=== PATIENT | male | born 1955 | race Caucasian/White ===

== ENCOUNTER 2020-10-11 02:51 | Emergency (ER) | payer BC ==
[2020-10-11] MEDS ORDERED: Ketorolac 60 MG/2 ML SDV IM ONE (02:56)
[2020-10-11] MEDS ORDERED: Sodium Chloride 0.9% 1,000 ML IV ONE (02:57)
[2020-10-11] MEDS ORDERED: Ondansetron 4 MG Tab.DIS PO ONE (03:15)
--- NOTE | 2020-10-11 03:51 | EDM.PDOC ---
ED HPI GENERAL MEDICAL PROBLEM - General Chief Complaint: Flank Pain Stated Complaint: flank pain Time Seen by Provider: 10/11/20 03:15 Source of Information: Reports: Patient History Limitations: Reports: No Limitations - History of Present Illness INITIAL COMMENTS - FREE TEXT/NARRATIVE: patient present to the ER with a c/o left flank pain - started around 6 hrs ago prior going to bed. Has been getting worse. In the left flank and radiating to the back. mild nausea no fever or chills no similar pain in the past reports it is sharp and around 9 out of 10. Onset: Sudden Duration: Hour(s): (6) Location: Reports: Abdomen Quality: Reports: Sharp, Stabbing Severity: Severe Improves with: Reports: None Worsens with: Reports: None Left Flank Pain Score (Numeric/FACES): 9 Past Medical History Cardiovascular History: Reports: High Cholesterol, Hypertension Endocrine/Metabolic History: Reports: Other (See Below) Other Endocrine/Metabolic History: pre diabetic Dermatologic History: Reports: Melanoma - Past Surgical History GI Surgical History: Reports: Hernia Repair/Other Musculoskeletal Surgical History: Reports: Other (See Below) Other Musculoskeletal Surgeries/Procedures:: achilles tendon repain Social & Family History - Recreational Drug Use Recreational Drug Use: No ED ROS GENERAL - Review of Systems Review Of Systems: See Below Constitutional: Reports: No Symptoms HEENT: Reports: No Symptoms Respiratory: Reports: No Symptoms Cardiovascular: Reports: No Symptoms GI/Abdominal: Reports: Anorexia Musculoskeletal: Reports: No Symptoms Skin: Reports: No Symptoms Neurological: Reports: No Symptoms Psychiatric: Reports: No Symptoms ED EXAM, GI/ABD - Physical Exam Exam: See Below Exam Limited By: No Limitations General Appearance: Alert, WD/WN, Mild Distress Eyes: Bilateral: EOMI Respiratory/Chest: No Respiratory Distress, Lungs Clear Cardiovascular: Normal Peripheral Pulses, Regular Rate, Rhythm GI/Abdominal Exam: Normal Bowel Sounds, Soft, Non-Tender Back Exam: CVA Tenderness (L) Neurological: Alert, Oriented, No Motor/Sensory Deficits Psychiatric: Normal Affect Course - Vital Signs Last Recorded V/S: Last Vital Signs Temp 36.1 C 10/11/20 03:20 Pulse 74 10/11/20 03:20 Resp 18 10/11/20 03:20 BP 154/101 H 10/11/20 03:20 Pulse Ox 97 10/11/20 03:20 - Orders/Labs/Meds Orders: Active Orders 24 hr Category Date Time Status Abdomen Pelvis wo Cont [CT] Stat Exams 10/11/20 03:47 Taken Labs: Laboratory Tests 10/11/20 10/11/20 10/11/20 Range/Units 03:10 03:10 03:20 WBC 9.7 D (4.0-11.0) K/uL RBC 4.49 L (4.50-6.50) M/uL Hgb 15.3 (13.0-18.0) g/dL Hct 42.4 (40.0-54.0) % MCV 94 (76-96) fL MCH 34.1 H (27.0-32.0) pg MCHC 36.1 H (31.0-35.0) g/dL RDW 11.8 (11.0-16.0) % Plt Count 202 (150-400) K/uL MPV 10.0 (6.0-10.0) fL Neut % (Auto) 74.4 H (45.0-70.0) % Lymph % (Auto) 15.1 L (20.0-40.0) % [place] % (Auto) 8.2 (3.0-10.0) % Eos % (Auto) 2.0 (1.0-5.0) % Baso % (Auto) 0.3 (0.0-0.5) % Neut # (Auto) 7.18 (2.00-7.50) K/uL Lymph # (Auto) 1.46 L (1.50-4.00) K/uL [place] # (Auto) 0.79 (0.20-0.80) K/uL Eos # (Auto) 0.19 (0.04-0.40) K/uL Baso # (Auto) 0.03 (0.02-0.10) K/uL Sodium 139 (136-145) mmol/L Potassium 4.1 (3.5-5.1) mmol/L Chloride 103 (98-107) mmol/L Carbon Dioxide 26.0 (21.0-32.0) mmol/L Anion Gap 14.1 (5.0-15.0) mmol/L BUN 21 D (8-26) mg/dL Creatinine 1.42 H D (0.70-1.30) mg/dL Est Cr Clr Drug Dosing TNP Estimated GFR (MDRD) 51 L (>60) MLS/MIN BUN/Creatinine Ratio 14.8 (6-25) Glucose 193 H (74-100) mg/dL Calcium 9.0 (8.5-10.1) mg/dL Urine Color Yellow Urine Appearance Clear (CLEAR) Urine pH 5.5 (5.0-8.0) Ur Specific [place] >= 1.030 (1.003-1.030) Urine Protein Negative (NEGATIVE) mg/dL Urine Glucose (UA) Negative (NEGATIVE) mg/dL Urine Ketones 15 H (NEGATIVE) mg/dL Urine Occult Blood Small H (NEGATIVE) Urine Nitrite Negative (NEGATIVE) Urine Bilirubin Negative (NEGATIVE) Urine Urobilinogen 0.2 (0.2-1.0) E.U./dL Ur Leukocyte Esterase Negative (NEGATIVE) Urine RBC 10-20 H /HPF Urine WBC Not Reportable Urine Bacteria Rare /HPF Meds: Medications Discontinued Medications Generic Name Dose Route Start Last Admin Trade Name Lui PRN Reason Stop Dose Admin Sodium Chloride 1,000 mls @ 999 mls/hr 10/11/20 02:57 10/11/20 03:14 Normal Saline IV 10/11/20 03:57 999 mls/hr .BOLUS ONE Administration Ketorolac Tromethamine 60 mg 10/11/20 02:56 10/11/20 03:01 Ketorolac 60 Mg/2 Ml Sdv IM 10/11/20 02:57 60 mg ONETIME ONE Administration Ketorolac Tromethamine Confirm 10/11/20 04:39 Ketorolac 10 Mg Tab Administered 10/11/20 04:40 Dose 100 mg .ROUTE .STK-MED ONE Ondansetron HCl 4 mg 10/11/20 03:15 10/11/20 03:16 Ondansetron 4 Mg Tab.Dis PO 10/11/20 03:16 4 mg ONETIME ONE Administration Tamsulosin HCl Confirm 10/11/20 04:39 Tamsulosin 0.4 Mg Cap.Er Administered 10/11/20 04:40 Dose 2.8 mg .ROUTE .STK-MED ONE - Re-Assessments/Exams Free Text/Narrative Re-Assessment/Exam: pain control with IM toradol IVF was started labs - showed mild elevation in Cr,, and ++ RBC in urine CT abd/pelv showed a 8mm left mid ureter with mild hydronephrosis patient reports pain significantly improved will d/cd home on Toradol, Zofran, Flomax and Cipro Departure - Departure Time of Disposition: 04:40 Disposition: Home, Self-Care 01 Clinical Impression: Ureteric colic, UTI, Urinary tract infectious disease, Flank pain - Discharge Information *PRESCRIPTION DRUG MONITORING PROGRAM REVIEWED*: Not Applicable *COPY OF PRESCRIPTION DRUG MONITORING REPORT IN PATIENT ELVIRA: Not Applicable Instructions: Renal Colic, [id number], Flank Pain, Adult, [id number] Referrals: PCP,Unknown [Primary Care Provider] - Forms: ED Department Discharge Additional Instructions: - increase fluids intake -take pain medications as prescribed - return to the ER if symptoms got worse or any concerns - follow up with your PCP in 3-7 days to recheck you kidney function Sepsis Event Note (ED) - Evaluation Sepsis Screening Result: No Definite Risk - Focused Exam Vital Signs: Vital Signs Temp Pulse Resp BP Pulse Ox 10/11/20 03:20 36.1 C 74 18 154/101 H 97 - Problem List & Annotations (1) Flank pain SNOMED Code(s): 409826719 Code(s): R10.9 - UNSPECIFIED ABDOMINAL PAIN Status: Acute Priority: Low Current Visit: Yes (2) UTI, Urinary tract infectious disease SNOMED Code(s): 49102836 Code(s): N39.0 - URINARY TRACT INFECTION, SITE NOT SPECIFIED Status: Acute Priority: Low Current Visit: Yes (3) Ureteric colic SNOMED Code(s): 03890392 Code(s): N23 - UNSPECIFIED RENAL COLIC Status: Acute Priority: Medium Current Visit: Yes (4) KRISTINA (acute kidney injury) SNOMED Code(s): 16720151, 07904110 Code(s): N17.9 - ACUTE KIDNEY FAILURE, UNSPECIFIED Status: Acute Priority: Low Current Visit: Yes - Problem List Review Problem List Initiated/Reviewed/Updated: Yes - My Orders Last 24 Hours: My Active Orders 10/11/20 03:47 Abdomen Pelvis wo Cont [CT] Stat - Assessment/Plan Last 24 Hours: My Active Orders 10/11/20 03:47 Abdomen Pelvis wo Cont [CT] Stat Plan: - increase fluids intake -take pain medications as prescribed - return to the ER if symptoms got worse or any concerns - follow up with your PCP in 3-7 days to recheck you kidney function
[2020-10-11] MEDS ORDERED: Tamsulosin 0.4 MG Cap.ER ONE ×2 (04:30→04:39)
[2020-10-11] MEDS ORDERED: Ketorolac 10 MG Tab ONE ×2 (04:30→04:39)
[2020-10-11] MEDS ORDERED: Ondansetron 4 MG Tab.DIS ONE (04:30)
[2020-10-11] MEDS ORDERED: Ciprofloxacin 500 MG Tab ONE (04:30)
--- NOTE | 2020-10-13 07:45 | CT ---
Date of Service: 10/11/20 Clinical Data: Left flank pain. UNENHANCED ABDOMEN AND PELVIC CT: Multislice acquisition through the abdomen and pelvis without IV or oral contrast was performed. No priors. The lung bases are clear. The heart size is normal. The unenhanced liver appears normal. No focal hepatic lesions. The gallbladder appears normal. No calcified gallstones. The spleen appears normal. 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 The pancreas appears normal. The right and left adrenals appear normal. There is an 8 mm left ureteral calculus located in the left ureter at the L4-5 interspace level. There is hydronephrosis and hydroureter proximal to it consistent with obstruction. There is swelling of the left kidney and there is moderate perinephric fat stranding on the left. This is most likely related to obstruction. Pyelonephritis should be considered. There is also small amount of fluid within the anterior pararenal space on the left. The right kidney and collecting system appear normal. The bladder is partially fluid filled. It appears normal. The prostate is enlarged. There are calcifications within the prostate consistent with chronic prostatitis. The appendix is not dilated. No evidence of appendicitis. There is diverticulosis throughout the colon with severe diverticulosis of the sigmoid colon. No evidence of diverticulitis. No free air. No free fluid. No dilated loops of bowel. No adenopathy. No aortic aneurysm. There is a small fat-containing umbilical hernia. There is mesh placed within the anterior abdominal wall. There is degenerative disk disease at multiple levels in the lumbar spine. IMPRESSION: 8 mm left ureteral calculus with obstruction. Multiple other findings as discussed above. [id number] [facility]
== END 2020-10-11 05:00 | disposition home or self-care (01) ==
LOC: LB.ED 02:51
DX: N13.2 Hydronephrosis with renal and ureteral calculous obstruction (principal); N39.0 Urinary tract infection, site not specified; E78.00 Pure hypercholesterolemia, unspecified; I10 Essential (primary) hypertension
CPT/HCPCS: 36415; 74176; 80048; 81001; 85025; 96372; 99284-25; A9270-GY; J1885; J7030

== ENCOUNTER 2020-10-15 22:14 | Emergency (ER) | payer BC ==
--- NOTE | 2020-10-15 23:51 | ER ---
HISTORY OF PRESENT ILLNESS: A 64-year-old male here to have a Hook catheter checked. He had a kidney stone lasered with surgical procedure last evening in [place]. He ended up in the emergency room early in the morning because of urinary retention and a Hook catheter was placed. The patient has been having bloody urine, but now this evening he states it seems like it is not flowing as well and his bladder feels like he may have to urinate. He is worried about urinary retention once again. The patient does not feel sick. He is on Cipro and denies any other symptoms such as nausea, vomiting, or feeling hot or chilled. OBJECTIVE: GENERAL APPEARANCE: The patient is awake and alert. No obvious respiratory distress. VITAL SIGNS: Reviewed. Blood pressure 151/100, temp 97.7, pulse 60. : Examining the patient's leg bag attached to the Hook catheter reveals a small amount of blood tinged urine, probably about 200 mL. He does not have any tenderness over the bladder or lower abdomen with light palpation. SKIN: Warm and dry. INITIAL TREATMENT: At this point, nursing staff did a bladder scan which gave us a result of zero. We then flushed the catheter, which flushed well easily, and we only were able to remove the same amount of fluid that we used for the flush. The patient tolerated this well also. DIAGNOSIS: Postprocedure recheck for a kidney stone with a functioning Hook catheter. TREATMENT PLAN: I advised the patient to go home. He did not have a standard bag, just a leg bag. We supplied him with a standard catheter bag. He can hang from his bed while he is sleeping and I advised him to hang it below the level of his body. The patient does have Toradol as well as narcotic pain medications to take as needed. I advised him to do this also on an as-needed basis. He is really not having much pain at this time. He has a followup appointment in [place] on Tuesday. I advised patient to follow up sooner here on a p.r.n. basis or feel free to call the urologist's office with any further questions. He has no further questions tonight and agrees with the treatment plan. CRS/MODL /[id number]
== END 2020-10-15 23:06 | disposition home or self-care (01) ==
LOC: LB.ED 22:14
DX: T83.091A Other mechanical complication of indwelling urethral catheter, initial encounter (principal); N99.89 Other postprocedural complications and disorders of genitourinary system
CPT/HCPCS: 51700; 51798; 99282; 99283-25

== ENCOUNTER 2020-10-18 16:02 | Emergency (ER) | payer BC ==
--- NOTE | 2020-10-18 21:55 | ER ---
HISTORY OF PRESENT ILLNESS: A 64-year-old male here concerned about a possible plugged catheter. He has had a Hook catheter for a few days after having lithotripsy done. He states that today for a while, it was not draining, now after moving around some, there was some bloody urine drainage and it has been draining. The patient denies any problems with abdominal pain, but tells me that earlier today, he was feeling a pressure in the lower abdomen. He does not otherwise feel sick. INITIAL TREATMENT MEASURES: Nursing staff irrigated the patient's Hook without any difficulty or resistance and there was some bloody urine output after this with some small clots. At this point, the patient will be discharged home. There is no abdominal pain with palpation today over the bladder area and vitals are stable. The patient does have a followup appointment with Urology on Tuesday. DIAGNOSIS: Catheter issues with a possible obstruction, resolving before arriving at the ER. EMERSON/MODDunia /[id number]
== END 2020-10-18 16:35 | disposition home or self-care (01) ==
LOC: LB.ED 16:02
DX: Z46.6 Encounter for fitting and adjustment of urinary device (principal)
CPT/HCPCS: 99281; 99283

== ENCOUNTER 2021-11-18 09:50 | Emergency (ER) | payer MEDICAID ==
[2021-11-18] MEDS ORDERED: Diphtheria,Pertussis(Acell),Tetanus Vaccine 0.5 ML SDV IM ONE (10:18)
[2021-11-24] MEDS ORDERED: Lidocaine 2% 20 ML MDV INFILT ONE (10:51)
== END 2021-11-18 12:00 | disposition home or self-care (01) ==
LOC: LB.ED 09:50
DX: S61.213A Laceration without foreign body of left middle finger without damage to nail, initial encounter (principal); E78.00 Pure hypercholesterolemia, unspecified; I10 Essential (primary) hypertension; Z88.2 Allergy status to sulfonamides; Z23 Encounter for immunization; Z88.8 Allergy status to other drugs, medicaments and biological substances; W26.8XXA Contact with other sharp object(s), not elsewhere classified, initial encounter
CPT/HCPCS: 12001; 73140-F2; 90471; 90715; 99281; 99283-25

== ENCOUNTER 2023-06-27 12:42 | Emergency (ER) | payer MEDICAID | END 2023-06-27 14:04 | disposition home or self-care (01) | LOC: LB.ED 12:42 | DX: S06.0X0A Concussion without loss of consciousness, initial encounter (principal); I10 Essential (primary) hypertension; J45.909 Unspecified asthma, uncomplicated; E78.00 Pure hypercholesterolemia, unspecified; Z88.2 Allergy status to sulfonamides; Z88.8 Allergy status to other drugs, medicaments and biological substances; Z79.899 Other long term (current) drug therapy; W22.8XXA Striking against or struck by other objects, initial encounter; W19.XXXA Unspecified fall, initial encounter | CPT/HCPCS: 70450; 99283 ==

== ENCOUNTER 2024-09-14 19:11 | Emergency (ER) | payer MEDICARE, OTHER ==
[2024-09-14] MEDS ORDERED: Sodium Chloride 0.9% 10 ML Syringe FLUSH PRN (19:24)
[2024-09-14] MEDS ORDERED: Naloxone 2 MG/2 ML Syringe IVPUSH PRN (19:27)
[2024-09-14] MEDS: Ketorolac 15 MG/ML SDV IVPUSH ONE (19:36)
[2024-09-14 19:41] LABS: BASOPHILS ABSOLUTE AUTO 0.02 K/uL (0.02-0.10); BASOPHILS PERCENT AUTO 0.2 % (0.0-0.5); EOSINOPHILS ABSOLUTE AUTO 0.18 K/uL (0.04-0.40); HEMATOCRIT 43.5 % (40.0-54.0); HEMOGLOBIN 15.8 g/dL (13.0-18.0); LYMPHOCYTES ABSOLUTE AUTO 1.55 K/uL (1.50-4.00); LYMPHOCYTES PERCENT AUTO 17.5 % (20.0-40.0); MEAN CORPUSCULAR HEMOGLOBIN 33.7 pg (27.0-32.0); MEAN CORPUSCULAR HGB CONC 36.3 g/dL (31.0-35.0); MEAN CORPUSCULAR VOLUME 93 fL (76-96); MEAN PLATELET VOLUME 9.5 fL (6.0-10.0); MONOCYTES ABSOLUTE AUTO 0.96 K/uL (0.20-0.80); MONOCYTES PERCENT AUTO 10.9 % (3.0-10.0); NEUTROPHILS ABSOLUTE AUTO 6.13 K/uL (2.00-7.50); NEUTROPHILS PERCENT AUTO 69.4 % (45.0-70.0); PLATELET COUNT,PLT 213 K/uL (150-400); RED BLOOD CELL COUNT 4.69 M/uL (4.50-6.50); RED CELL DISTRIBUTION WIDTH 12.1 % (11.0-16.0); WHITE BLOOD CELL COUNT,WBC 8.8 K/uL (4.0-11.0)
[2024-09-14] MEDS: Tamsulosin 0.4 MG Cap.ER PO ONE (19:45)
[2024-09-14] MEDS: HYDROmorphone 1 MG/ML Syringe IVPUSH ONE (19:49)
[2024-09-14] MEDS: Ondansetron 4 MG/2 ML SDV IVPUSH ONE (19:55)
[2024-09-14] MEDS: Sodium Chloride 0.9% 1,000 ML IV ONE (19:56)
[2024-09-14 19:59] LABS: APPEARANCE,URINE CLOUDY (CLEAR); COLOR,URINE OTHER
[2024-09-14 20:00] LABS: BILIRUBIN,URINE SMALL (NEGATIVE); GLUCOSE,URINE NEGATIVE (NEGATIVE); KETONES,URINE TRACE mg/dL (NEGATIVE); LEUKOCYTE ESTERASE,URINE NEGATIVE (NEGATIVE); NITRITE,URINE NEGATIVE (NEGATIVE); OCCULT BLOOD,URINE LARGE (NEGATIVE); PROTEIN,URINE >=300 mg/dL (NEGATIVE); UROBILINOGEN,URINE 0.2 E.U./dL (0.2-1.0)
[2024-09-14 20:01] LABS: CALCIUM OXALATE CRYSTALS,URINE MANY /HPF; RBC,URINE >100 /HPF; WBC,URINE NOT SEEN /HPF
== END 2024-09-14 22:00 | disposition home or self-care (01) ==
LOC: LB.ED 19:11
DX: N13.2 Hydronephrosis with renal and ureteral calculous obstruction (principal); S37.002A Unspecified injury of left kidney, initial encounter; I10 Essential (primary) hypertension; E78.00 Pure hypercholesterolemia, unspecified; Z79.899 Other long term (current) drug therapy; Z88.2 Allergy status to sulfonamides; Z91.048 Other nonmedicinal substance allergy status; X50.9XXA Other and unspecified overexertion or strenuous movements or postures, initial encounter
CPT/HCPCS: 36415; 74176; 81001; 85025; 96361; 96374; 96375; 99284-25; A9270-GY; J1171; J1885; J2405; J7030